=== PATIENT | male | born 1935 | race Caucasian/White ===

== ENCOUNTER 2018-01-17 14:00 | Outpatient (RCR) | payer MEDICARE, OTHER, SELFPAY ==
[2018-01-10 13:03] VITALS: BP 164/69; PULSE 68; RESP 16; TEMP 36.3; BMI 23.6
--- NOTE | 2018-01-10 14:45 | RAD_ITS ---
STUDY: X-RAY RIGHT FOOT, SECOND TOE REASON FOR EXAM: Male, 82 years old. Ulcer on second toe. TECHNIQUE: 3 view(s) of the toe were obtained. COMPARISON: None. FINDINGS: There is demineralization of the metatarsus and phalanges. There is moderately severe arthrosis of the metatarsophalangeal (M.T.P.) joint. Unremarkable interphalangeal joints. . There is no demonstrated fracture/bony destruction. The soft tissue structures are unremarkable. There are vascular calcifications. RAD/Toe(s) Min 2 Views IMPRESSION: 1. 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 2. Osteopenia. No demonstrated fracture/bony destruction. Electronically Signed: Kendal Seay MD at 8:55 EDT Tel , Service support ,
--- NOTE | 2018-01-10 16:11 | PCM.WC.HP ---
(1) HTN (hypertension) Status: Chronic Current Visit: Yes Qualifiers: Hypertension type: unspecified Qualified Code(s): I10 - Essential (primary) hypertension Code(s): I10 - Essential (primary) hypertension (2) Osteoarthritis Status: Acute Current Visit: Yes Qualifiers: Osteoarthritis location: multiple joints Osteoarthritis type: primary Qualified Code(s): M15.0 - Primary generalized (osteo)arthritis Code(s): M19.90 - Unspecified osteoarthritis, unspecified site (3) Callus of foot Status: Chronic Current Visit: Yes Code(s): L84 - Corns and callosities (4) Pressure ulcer of toe, stage 1 Status: Chronic Current Visit: Yes Qualifiers: Laterality: right Qualified Code(s): L89.891 - Pressure ulcer of other site, stage 1 Code(s): L89.891 - Pressure ulcer of other site, stage 1 History of Present Illness Date of Service: 01/10/18 Chief Complaint: nonhealing wound right toes History of Wound: Branden presents to the wound healing center for evaluation and treatment of a nonhealing wound of his right great and second toes. He has had this wound off and on for 6-7 months. It is in between his great and second toes and is painful. He denies any drainage or bleeding. He has been soaking his feet in Epsom salt and placing neosporin on the wound. He has also tried a toe spacer to prevent his toes from rubbing together as well. He has tried different shoes and has cut the toes out of one of his pairs of tennis shoes to see if this would help avoid pressure to the area as well. None of these have kept the wound/ulcers from recurring. He has seen his PCP regarding this problem but he has not seen a ramp jockey. He has no hx. of DM. He denies any edema or numbness or tingling. He has not had any treatment with antibiotics. Past Medical History Past Medical History: Chronic Problems HTN (hypertension) (Chronic) Callus of foot (Chronic) Pressure ulcer of toe, stage 1 (Chronic) Allergies/Adverse Reactions: Allergies No Known Allergies Allergy (Verified 01/10/18 13:26) Home Medications: Ambulatory Orders Medication Instructions Recorded Diclofenac [Voltaren] 75 mg PO DAILY 01/10/18 Lisinopril/Hydrochlorothiazide 1 tablet PO DAILY 01/10/18 [Zestoretic 10/12.5 Tablet] Loratadine 10 mg PO DAILY 01/10/18 Niacin 50 mg PO DAILY 01/10/18 Ranitidine [Zantac] 150 mg PO DAILY 01/10/18 traMADol [Ultram (G)] 50 mg PO Q4H PRN PRN 01/10/18 - Family History Maternal No pertinent history Paternal No pertinent history Lives: Spouse/ Significant Other Smoking Status: Never smoker Tobacco Use: Non-smoker Alcohol: None Drugs: None Review of Systems Constitutional: Denies: Chills, Fever, Weight Change Eyes: Denies: Pain, Vision Change HEENT: Denies: Difficulty Hearing, Difficulty Swallowing, Sinus Congestion Cardiovascular: Denies: Chest Pain, Palpitations Respiratory: Denies: Cough, Shortness of Breath Gastrointestinal: Denies: Diarrhea, Nausea, Vomiting Genitourinary: Denies: Dysuria, Hematuria Musculoskeletal: Reports: Joint Pain, Joint stiffness Skin: Reports: Wounds Hematologic/ Lymphatic: Denies: Easy Bruising, Easy Bleeding - Physical Exam Vital Signs Temp Pulse Resp BP 97.3 F L 68 16 164/69 H 01/10/18 13:03 01/10/18 13:03 01/10/18 13:03 01/10/18 13:03 General: Alert, Oriented x3, Cooperative, No apparent distress HEENT: Atraumatic, Normocephalic Oral: Moist Mucosa Neck: Supple, No JVD Lungs: Clear to auscultation Cardiovascular: Regular rate, Regular Rhythm Abdomen: Soft, Non Tender Extremities: No edema Skin: Ulcer/ Wound, - - callus Wound Measurements and Assessment WC - Nurse 1 - General Ulcer Measurement Start: 01/10/18 13:02 Freq: Status: Active Protocol: Activity Type Activity Date Activity User E-Sign Co-Sign Detail Recorded Client Recorded Date Recorded By Document 01/10/18 13:03 [id number] 01/10/18 13:24 01/10/18 13:03 Wound Center Nurse 1 [Ulcer Assessment] RIGHT SECOND TOE -Combined with other wound No -Current Size (cm) - Length 0.2 -Current Size (cm) - Width 0.3 -Current Size (cm) - Depth 0.1 -Total Square Cm 0.06 -Date of Last Picture (Recall this 01/10/18 field) -Photo Taken Yes -Epithelialization None Present -Tunneling No -Undermining/Tunneling No -Circular Undermining No -Exudate Amt None Present (0 %) -Wound Margin Distinct, Outline Attached -Granulation Amt None Present (0 %) -Granulation Quality N/A -Slough/Fibrin Yes -Necrosis Amt None Present (0 %) -Necrotic Tissue Type Adherent Slough -Structure Exposed None/Limited to Skin Breakdown -Texture (Cecily-wound Skin Appearance) Assessed Callus -Moisture (Cecily-wound Skin Appearance No Abnormality ) Assessed -Color (Cecily-wound Skin Appearance) Assessed Erythema -Temperature (Cecily-wound Skin No Abnormality Appearance) (Pt Warm) -Tenderness on Palpation (Cecily-wound Yes Skin Appearance) -Ulcer Cleansing Rinsed/ Irrigated with Saline -Foul Odor after Cleansing No -Anesthetic Used 4% Lidocaine Solution WC - Nurse 2 - General Ulcer CM Notes Start: 01/10/18 13:02 Freq: Status: Active Protocol: Activity Type Activity Date Activity User E-Sign Co-Sign Detail Recorded Client Recorded Date Recorded By Document 01/10/18 14:01 [email or web address] [id number] 01/10/18 14:13 01/10/18 14:01 Wound Center Nurse 2 [Procedure/Treatment] -Time 14:01 -Correct Patient Yes -Correct Side, Site, Position Yes -Correct Procedure Yes -Procedure Performed Yes -Type of Procedure Debridement -Clinical Debridement Selective -Post Debridement Size (cm) - Length 0.2 -Post Debridement Size (cm) - Width 0.3 -Post Debridement Size (cm) - Depth 0.1 -Total Square Cm 0.06 -Wound/Ulcer Outcome Not Healed -Ulcer Cleansing Rinsed/ Irrigated with Saline -Foul Odor after Cleansing No -Bleeding Controlled with NA -Treatment Response Procedure Tolerated Well [See Physician Procedure note for Specifics] Pain Scale: 0-10 Numeric [Pain] -Is Patient Pain Free? Yes Neurological: Cranial nerves II-XII grossly intact Psych/Mental Status: Normal Affect, Appropriate Debridement Note Post-Debridement Measurements/Treatment - Nurse 2 - General Ulcer CM Notes Start: 01/10/18 13:02 Freq: Status: Active Protocol: Activity Type Activity Date Activity User E-Sign Co-Sign Detail Recorded Client Recorded Date Recorded By Document 01/10/18 14:01 [id number] 01/10/18 14:13 JS 01/10/18 14:01 Wound Center Nurse 2 RIGHT SECOND TOE -Time 14:01 -Correct Patient Yes -Correct Side, Site, Position Yes -Correct Procedure Yes -Procedure Performed Yes -Type of Procedure Debridement -Clinical Debridement Selective -Post Debridement Size (cm) - Length 0.2 -Post Debridement Size (cm) - Width 0.3 -Post Debridement Size (cm) - Depth 0.1 -Total Square Cm 0.06 -Wound/Ulcer Outcome Not Healed -Ulcer Cleansing Rinsed/ Irrigated with Saline -Foul Odor after Cleansing No -Bleeding Controlled with NA -Treatment Response Procedure Tolerated Well Pain Scale: 0-10 Numeric Is Patient Pain Free? Yes Wound debrided: right second toe Laterality: Right Wound Grade/Stage: Stage 1 Type of Debridement: Selective debridement Anesthesia Used: 4% Lidocaine Solution Depth: Down to and including healthy tissue Percentage of wound debrided: 100 Instrument Used: 3mm curette Tissue Removed: callus Severity: Limited To Skin Breakdown Amount of bleeding with debridement: None Patient tolerated procedure well Assessment/Plan Active Problems HTN (hypertension) (Chronic) Osteoarthritis (Acute) Callus of foot (Chronic) Pressure ulcer of toe, stage 1 (Chronic) Assessment: Stage 1 pressure ulcer right second toe. Callus of right great toe. cellulitis right second toe Plan: Will try treatment with keflex due to his pain and mild erythema although I am only minimally concerned for infection. Will also check xray to r/o osteomyelitis. Will have him use gauze or toe spacer to prevent pressure. Advised to seek consult with podiatry for possibly offloading shoe or orthotic to prevent recurrence. Advised against continued use of neosporin. Will follow up in 1 week to recheck wound and review results.
--- NOTE | 2018-01-10 16:21 | HP.PCM_ITS ---
(1) HTN (hypertension) Status: Chronic Current Visit: Yes Qualifiers: Hypertension type: unspecified Qualified Code(s): I10 - Essential (primary ) hypertension Code(s): I10 - Essential (primary) hypertension (2) Osteoarthritis Status: Acute Current Visit: Yes Qualifiers: Osteoarthritis location: multiple joints Osteoarthritis type: primary Qualified Code(s): M15.0 - Primary generalized (osteo)arthritis Code(s): M19.90 - Unspecified osteoarthritis, unspecified site (3) Callus of foot Status: Chronic Current Visit: Yes Code(s): L84 - Corns and callosities (4) Pressure ulcer of toe, stage 1 Status: Chronic Current Visit: Yes Qualifiers: Laterality: right Qualified Code(s): L89.891 - Pressure ulcer of other site , stage 1 Code(s): L89.891 - Pressure ulcer of other site, stage 1 History of Present Illness Date of Service: 01/10/18 Chief Complaint: nonhealing wound right toes History of Wound: Branden presents to the wound healing center for evaluation and treatment of a nonhealing wound of his right great and second toes. He has had this wound off and on for 6-7 months. It is in between his great and second toes and is painful. He denies any drainage or bleeding. He has been soaking his feet in Epsom salt and placing neosporin on the wound. He has also tried a toe spacer to prevent his toes from rubbing together as well. He has tried different shoes and has cut the toes out of one of his pairs of tennis shoes to see if this would help avoid pressure to the area as well. None of these have kept the wound/ulcers from recurring. He has seen his PCP regarding this problem but he has not seen a research and evaluation manager. He has no hx. of DM. He denies any edema or numbness or tingling. He has not had any treatment with antibiotics. Past Medical History Past Medical History: Chronic Problems HTN (hypertension) (Chronic) Callus of foot (Chronic) Pressure ulcer of toe, stage 1 (Chronic) Allergies/Adverse Reactions: Allergies No Known Allergies Allergy (Verified 01/10/18 13:26) Home Medications: Ambulatory Orders Medication Instructions Recorded Diclofenac [Voltaren] 75 mg PO DAILY 01/10/18 Lisinopril/Hydrochlorothiazide 1 tablet PO DAILY 01/10/18 [Zestoretic 10/12.5 Tablet] Loratadine 10 mg PO DAILY 01/10/18 Niacin 50 mg PO DAILY 01/10/18 Ranitidine [Zantac] 150 mg PO DAILY 01/10/18 traMADol [Ultram (G)] 50 mg PO Q4H PRN PRN 01/10/18 - Family History Maternal No pertinent history Paternal No pertinent history Lives: Spouse/ Significant Other Smoking Status: Never smoker Tobacco Use: Non-smoker Alcohol: None Drugs: None Review of Systems Constitutional: Denies: Chills, Fever, Weight Change Eyes: Denies: Pain, Vision Change HEENT: Denies: Difficulty Hearing, Difficulty Swallowing, Sinus Congestion Cardiovascular: Denies: Chest Pain, Palpitations Respiratory: Denies: Cough, Shortness of Breath Gastrointestinal: Denies: Diarrhea, Nausea, Vomiting Genitourinary: Denies: Dysuria, Hematuria Musculoskeletal: Reports: Joint Pain, Joint stiffness Skin: Reports: Wounds Hematologic/ Lymphatic: Denies: Easy Bruising, Easy Bleeding - Physical Exam Vital Signs Temp Pulse Resp BP 97.3 F L 68 16 164/69 H 01/10/18 13:03 01/10/18 13:03 01/10/18 13:03 01/10/18 13:03 General: Alert, Oriented x3, Cooperative, No apparent distress HEENT: Atraumatic, Normocephalic Oral: Moist Mucosa Neck: Supple, No JVD Lungs: Clear to auscultation Cardiovascular: Regular rate, Regular Rhythm Abdomen: Soft, Non Tender Extremities: No edema Skin: Ulcer/ Wound, - - callus Wound Measurements and Assessment WC - Nurse 1 - General Ulcer Measurement Start: 01/10/18 13:02 Freq: Status: Active Protocol: Activity Type Activity Date Activity User E-Sign Co-Sign Detail Recorded Client Recorded Date Recorded By Document 01/10/18 13:03 [id number] 01/10/18 13:24 01/10/18 13:03 Wound Center Nurse 1 [Ulcer Assessment] RIGHT SECOND TOE -Combined with other wound No -Current Size (cm) - Length 0.2 -Current Size (cm) - Width 0.3 -Current Size (cm) - Depth 0.1 -Total Square Cm 0.06 -Date of Last Picture (Recall this 01/10/18 field) -Photo Taken Yes -Epithelialization None Present -Tunneling No -Undermining/Tunneling No -Circular Undermining No -Exudate Amt None Present (0 %) -Wound Margin Distinct, Outline Attached -Granulation Amt None Present (0 %) -Granulation Quality N/A -Slough/Fibrin Yes -Necrosis Amt None Present (0 %) -Necrotic Tissue Type Adherent Slough -Structure Exposed None/Limited to Skin Breakdown -Texture (Cecily-wound Skin Appearance) Assessed Callus -Moisture (Cecily-wound Skin Appearance No Abnormality ) Assessed -Color (Cecily-wound Skin Appearance) Assessed Erythema -Temperature (Cecily-wound Skin No Abnormality Appearance) (Pt Warm) -Tenderness on Palpation (Cecily-wound Yes Skin Appearance) -Ulcer Cleansing Rinsed/ Irrigated with Saline -Foul Odor after Cleansing No -Anesthetic Used 4% Lidocaine Solution WC - Nurse 2 - General Ulcer CM Notes Start: 01/10/18 13:02 Freq: Status: Active Protocol: Activity Type Activity Date Activity User E-Sign Co-Sign Detail Recorded Client Recorded Date Recorded By Document 01/10/18 14:01 [email or web address] [id number] 01/10/18 14:13 01/10/18 14:01 Wound Center Nurse 2 [Procedure/Treatment] -Time 14:01 -Correct Patient Yes -Correct Side, Site, Position Yes -Correct Procedure Yes -Procedure Performed Yes -Type of Procedure Debridement -Clinical Debridement Selective -Post Debridement Size (cm) - Length 0.2 -Post Debridement Size (cm) - Width 0.3 -Post Debridement Size (cm) - Depth 0.1 -Total Square Cm 0.06 -Wound/Ulcer Outcome Not Healed -Ulcer Cleansing Rinsed/ Irrigated with Saline -Foul Odor after Cleansing No -Bleeding Controlled with NA -Treatment Response Procedure Tolerated Well [See Physician Procedure note for Specifics] Pain Scale: 0-10 Numeric [Pain] -Is Patient Pain Free? Yes Neurological: Cranial nerves II-XII grossly intact Psych/Mental Status: Normal Affect, Appropriate Debridement Note Post-Debridement Measurements/Treatment - Nurse 2 - General Ulcer CM Notes Start: 01/10/18 13:02 Freq: Status: Active Protocol: Activity Type Activity Date Activity User E-Sign Co-Sign Detail Recorded Client Recorded Date Recorded By Document 01/10/18 14:01 [id number] 01/10/18 14:13 JS 01/10/18 14:01 Wound Center Nurse 2 RIGHT SECOND TOE -Time 14:01 -Correct Patient Yes -Correct Side, Site, Position Yes -Correct Procedure Yes -Procedure Performed Yes -Type of Procedure Debridement -Clinical Debridement Selective -Post Debridement Size (cm) - Length 0.2 -Post Debridement Size (cm) - Width 0.3 -Post Debridement Size (cm) - Depth 0.1 -Total Square Cm 0.06 -Wound/Ulcer Outcome Not Healed -Ulcer Cleansing Rinsed/ Irrigated with Saline -Foul Odor after Cleansing No -Bleeding Controlled with NA -Treatment Response Procedure Tolerated Well Pain Scale: 0-10 Numeric Is Patient Pain Free? Yes Wound debrided: right second toe Laterality: Right Wound Grade/Stage: Stage 1 Type of Debridement: Selective debridement Anesthesia Used: 4% Lidocaine Solution Depth: Down to and including healthy tissue Percentage of wound debrided: 100 Instrument Used: 3mm curette Tissue Removed: callus Severity: Limited To Skin Breakdown Amount of bleeding with debridement: None Patient tolerated procedure well Assessment/Plan Active Problems HTN (hypertension) (Chronic) Osteoarthritis (Acute) Callus of foot (Chronic) Pressure ulcer of toe, stage 1 (Chronic) Assessment: Stage 1 pressure ulcer right second toe. Callus of right great toe. cellulitis right second toe Plan: Will try treatment with keflex due to his pain and mild erythema although I am only minimally concerned for infection. Will also check xray to r/o osteomyelitis. Will have him use gauze or toe spacer to prevent pressure. Advised to seek consult with podiatry for possibly offloading shoe or orthotic to prevent recurrence. Advised against continued use of neosporin. Will follow up in 1 week to recheck wound and review results.
[2018-01-17 14:15] VITALS: BP 151/80; PULSE 83; RESP 18; TEMP 36.4; BMI 23.6
--- NOTE | 2018-01-17 19:53 | PCM.WC.PN ---
(1) HTN (hypertension) Status: Chronic Current Visit: Yes Qualifiers: Hypertension type: unspecified Qualified Code(s): I10 - Essential (primary) hypertension Code(s): I10 - Essential (primary) hypertension (2) Osteoarthritis Status: Acute Current Visit: Yes Qualifiers: Osteoarthritis location: multiple joints Osteoarthritis type: primary Qualified Code(s): M15.0 - Primary generalized (osteo)arthritis Code(s): M19.90 - Unspecified osteoarthritis, unspecified site (3) Callus of foot Status: Chronic Current Visit: Yes Code(s): L84 - Corns and callosities (4) Pressure ulcer of toe, stage 1 Status: Chronic Current Visit: Yes Qualifiers: Laterality: right Qualified Code(s): L89.891 - Pressure ulcer of other site, stage 1 Code(s): L89.891 - Pressure ulcer of other site, stage 1 Type of Wound Date of Service: 01/17/18 Chief Complaint: nonhealing wound right toes History of Wound: Branden presents to the wound healing center for evaluation and treatment of a nonhealing wound of his right great and second toes. He has had this wound off and on for 6-7 months. It is in between his great and second toes and is painful. He denies any drainage or bleeding. He has been soaking his feet in Epsom salt and placing neosporin on the wound. He has also tried a toe spacer to prevent his toes from rubbing together as well. He has tried different shoes and has cut the toes out of one of his pairs of tennis shoes to see if this would help avoid pressure to the area as well. None of these have kept the wound/ulcers from recurring. He has seen his PCP regarding this problem but he has not seen a histology aide. He has no hx. of DM. He denies any edema or numbness or tingling. He has not had any treatment with antibiotics. Progress of Wound: Branden's wound is healed. He has been doing well with toe spacer. xray was negative for osteomyelitis. He is tolerating keflex. He has not scheduled appointment with podiatry at this time. - Physical Exam Vital Signs Temp Pulse Resp BP 97.6 F L 83 18 151/80 H 01/17/18 14:15 01/17/18 14:15 01/17/18 14:15 01/17/18 14:15 General: Alert, Oriented x3, Cooperative, No apparent distress HEENT: Atraumatic, Normocephalic Oral: Moist Mucosa Skin: Ulcer/ Wound Wound Measurements and Assessment - Nurse 1 - General Ulcer Measurement Start: 01/10/18 13:02 Freq: Status: Active Protocol: Activity Type Activity Date Activity User E-Sign Co-Sign Detail Recorded Client Recorded Date Recorded By Document 01/17/18 14:15 [id number] 01/17/18 14:19 DL 01/17/18 14:15 Wound Center Nurse 1 [Ulcer Assessment] RIGHT SECOND TOE -Current Size (cm) - Length 0 -Current Size (cm) - Width 0 -Current Size (cm) - Depth 0 -Total Square Cm 0 -Photo Taken Yes -Exudate Amt None Present (0 %) -Wound Margin Flat & Intact -Granulation Amt Large (67-100%) -Granulation Quality [place] -Necrosis Amt None Present (0 %) -Texture (Cecily-wound Skin Appearance) No Abnormality -Moisture (Cecily-wound Skin Appearance No Abnormality ) -Color (Cecily-wound Skin Appearance) No Abnormality -Temperature (Cecily-wound Skin No Abnormality Appearance) (Pt Warm) -Ulcer Cleansing Rinsed/ Irrigated with Saline -Foul Odor after Cleansing No -Anesthetic Used 4% Lidocaine Solution - Nurse 2 - General Ulcer CM Notes Start: 01/10/18 13:02 Freq: Status: Active Protocol: Activity Type Activity Date Activity User E-Sign Co-Sign Detail Recorded Client Recorded Date Recorded By Document 01/17/18 15:15 [id number] 01/17/18 15:22 01/17/18 15:15 Wound Center Nurse 2 [Procedure/Treatment] -Time 15:16 -Correct Patient Yes -Correct Side, Site, Position Yes -Correct Procedure Yes -Procedure Performed Yes -Post Debridement Size (cm) - Length 0 -Post Debridement Size (cm) - Width 0 -Post Debridement Size (cm) - Depth 0 -Total Square Cm 0 -Wound/Ulcer Outcome Healed- Epithelialized -Ulcer Cleansing Rinsed/ Irrigated with Saline -Foul Odor after Cleansing No -Bioengineered Tissue No -Bleeding Controlled with NA -Treatment Response Procedure Tolerated Well [See Physician Procedure note for Specifics] Pain Scale: 0-10 Numeric [Pain] -Is Patient Pain Free? Yes Psych/Mental Status: Normal Affect, Appropriate Debridement Note Post-Debridement Measurements/Treatment WC - Nurse 2 - General Ulcer CM Notes Start: 01/10/18 13:02 Freq: Status: Active Protocol: Activity Type Activity Date Activity User E-Sign Co-Sign Detail Recorded Client Recorded Date Recorded By Document 01/10/18 14:01 [id number] 01/10/18 14:13 Document 01/17/18 15:15 [id number] 01/17/18 15:22 01/10/18 01/17/18 14:01 15:15 Wound Center Nurse 2 RIGHT SECOND TOE -Time 14:01 15:16 -Correct Patient Yes Yes -Correct Side, Site, Position Yes Yes -Correct Procedure Yes Yes -Procedure Performed Yes Yes -Type of Procedure Debridement -Clinical Debridement Selective -Post Debridement Size (cm) - Length 0.2 0 -Post Debridement Size (cm) - Width 0.3 0 -Post Debridement Size (cm) - Depth 0.1 0 -Total Square Cm 0.06 0 -Wound/Ulcer Outcome Not Healed Healed- Epithelialized -Ulcer Cleansing Rinsed/ Rinsed/ Irrigated with Irrigated with Saline Saline -Foul Odor after Cleansing No No -Bioengineered Tissue No -Bleeding Controlled with NA NA -Treatment Response Procedure Procedure Tolerated Well Tolerated Well Pain Scale: 0-10 Numeric Is Patient Pain Free? Yes Yes Wound debrided: right second toe Laterality: Right No debridement was completed today - due to wound being healed Assessment/Plan Clinical Impression(s) from Imaging Studies Toe X-Ray 01/10/18 14:45 IMPRESSION: 1. 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 2. Osteopenia. No demonstrated fracture/bony destruction. Electronically Signed: Kendal Seay MD at 8:55 EDT Tel , Service support , Active Problems HTN (hypertension) (Chronic) Osteoarthritis (Acute) Callus of foot (Chronic) Pressure ulcer of toe, stage 1 (Chronic) Assessment: Stage 1 pressure ulcer right second toe. Callus of right great toe. cellulitis right second toe Plan: Lapwai's wound is healed. No sign of osteomyelitis on xray. Will have him use gauze or toe spacer to prevent pressure. Advised to seek consult with podiatry for possibly offloading shoe or orthotic to prevent recurrence. Advised against continued use of neosporin. Will follow up as needed.
--- NOTE | 2018-01-17 19:56 | PN.PCM_ITS ---
(1) HTN (hypertension) Status: Chronic Current Visit: Yes Qualifiers: Hypertension type: unspecified Qualified Code(s): I10 - Essential (primary ) hypertension Code(s): I10 - Essential (primary) hypertension (2) Osteoarthritis Status: Acute Current Visit: Yes Qualifiers: Osteoarthritis location: multiple joints Osteoarthritis type: primary Qualified Code(s): M15.0 - Primary generalized (osteo)arthritis Code(s): M19.90 - Unspecified osteoarthritis, unspecified site (3) Callus of foot Status: Chronic Current Visit: Yes Code(s): L84 - Corns and callosities (4) Pressure ulcer of toe, stage 1 Status: Chronic Current Visit: Yes Qualifiers: Laterality: right Qualified Code(s): L89.891 - Pressure ulcer of other site , stage 1 Code(s): L89.891 - Pressure ulcer of other site, stage 1 Type of Wound Date of Service: 01/17/18 Chief Complaint: nonhealing wound right toes History of Wound: Branden presents to the wound healing center for evaluation and treatment of a nonhealing wound of his right great and second toes. He has had this wound off and on for 6-7 months. It is in between his great and second toes and is painful. He denies any drainage or bleeding. He has been soaking his feet in Epsom salt and placing neosporin on the wound. He has also tried a toe spacer to prevent his toes from rubbing together as well. He has tried different shoes and has cut the toes out of one of his pairs of tennis shoes to see if this would help avoid pressure to the area as well. None of these have kept the wound/ulcers from recurring. He has seen his PCP regarding this problem but he has not seen a chopper feeder. He has no hx. of DM. He denies any edema or numbness or tingling. He has not had any treatment with antibiotics. Progress of Wound: Branden's wound is healed. He has been doing well with toe spacer. xray was negative for osteomyelitis. He is tolerating keflex. He has not scheduled appointment with podiatry at this time. - Physical Exam Vital Signs Temp Pulse Resp BP 97.6 F L 83 18 151/80 H 01/17/18 14:15 01/17/18 14:15 01/17/18 14:15 01/17/18 14:15 General: Alert, Oriented x3, Cooperative, No apparent distress HEENT: Atraumatic, Normocephalic Oral: Moist Mucosa Skin: Ulcer/ Wound Wound Measurements and Assessment - Nurse 1 - General Ulcer Measurement Start: 01/10/18 13:02 Freq: Status: Active Protocol: Activity Type Activity Date Activity User E-Sign Co-Sign Detail Recorded Client Recorded Date Recorded By Document 01/17/18 14:15 [id number] 01/17/18 14:19 DL 01/17/18 14:15 Wound Center Nurse 1 [Ulcer Assessment] RIGHT SECOND TOE -Current Size (cm) - Length 0 -Current Size (cm) - Width 0 -Current Size (cm) - Depth 0 -Total Square Cm 0 -Photo Taken Yes -Exudate Amt None Present (0 %) -Wound Margin Flat & Intact -Granulation Amt Large (67-100%) -Granulation Quality Whiteface -Necrosis Amt None Present (0 %) -Texture (Cecily-wound Skin Appearance) No Abnormality -Moisture (Cecily-wound Skin Appearance No Abnormality ) -Color (Cecily-wound Skin Appearance) No Abnormality -Temperature (Cecily-wound Skin No Abnormality Appearance) (Pt Warm) -Ulcer Cleansing Rinsed/ Irrigated with Saline -Foul Odor after Cleansing No -Anesthetic Used 4% Lidocaine Solution - Nurse 2 - General Ulcer CM Notes Start: 01/10/18 13:02 Freq: Status: Active Protocol: Activity Type Activity Date Activity User E-Sign Co-Sign Detail Recorded Client Recorded Date Recorded By Document 01/17/18 15:15 [id number] 01/17/18 15:22 01/17/18 15:15 Wound Center Nurse 2 [Procedure/Treatment] -Time 15:16 -Correct Patient Yes -Correct Side, Site, Position Yes -Correct Procedure Yes -Procedure Performed Yes -Post Debridement Size (cm) - Length 0 -Post Debridement Size (cm) - Width 0 -Post Debridement Size (cm) - Depth 0 -Total Square Cm 0 -Wound/Ulcer Outcome Healed- Epithelialized -Ulcer Cleansing Rinsed/ Irrigated with Saline -Foul Odor after Cleansing No -Bioengineered Tissue No -Bleeding Controlled with NA -Treatment Response Procedure Tolerated Well [See Physician Procedure note for Specifics] Pain Scale: 0-10 Numeric [Pain] -Is Patient Pain Free? Yes Psych/Mental Status: Normal Affect, Appropriate Debridement Note Post-Debridement Measurements/Treatment WC - Nurse 2 - General Ulcer CM Notes Start: 01/10/18 13:02 Freq: Status: Active Protocol: Activity Type Activity Date Activity User E-Sign Co-Sign Detail Recorded Client Recorded Date Recorded By Document 01/10/18 14:01 [id number] 01/10/18 14:13 Document 01/17/18 15:15 [id number] 01/17/18 15:22 01/10/18 01/17/18 14:01 15:15 Wound Center Nurse 2 RIGHT SECOND TOE -Time 14:01 15:16 -Correct Patient Yes Yes -Correct Side, Site, Position Yes Yes -Correct Procedure Yes Yes -Procedure Performed Yes Yes -Type of Procedure Debridement -Clinical Debridement Selective -Post Debridement Size (cm) - Length 0.2 0 -Post Debridement Size (cm) - Width 0.3 0 -Post Debridement Size (cm) - Depth 0.1 0 -Total Square Cm 0.06 0 -Wound/Ulcer Outcome Not Healed Healed- Epithelialized -Ulcer Cleansing Rinsed/ Rinsed/ Irrigated with Irrigated with Saline Saline -Foul Odor after Cleansing No No -Bioengineered Tissue No -Bleeding Controlled with NA NA -Treatment Response Procedure Procedure Tolerated Well Tolerated Well Pain Scale: 0-10 Numeric Is Patient Pain Free? Yes Yes Wound debrided: right second toe Laterality: Right No debridement was completed today - due to wound being healed Assessment/Plan Clinical Impression(s) from Imaging Studies Toe X-Ray 01/10/18 14:45 IMPRESSION: 1. 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 2. Osteopenia. No demonstrated fracture/bony destruction. Electronically Signed: Kendal Seay MD at 8:55 EDT Tel , Service support , Active Problems HTN (hypertension) (Chronic) Osteoarthritis (Acute) Callus of foot (Chronic) Pressure ulcer of toe, stage 1 (Chronic) Assessment: Stage 1 pressure ulcer right second toe. Callus of right great toe. cellulitis right second toe Plan: Branden's wound is healed. No sign of osteomyelitis on xray. Will have him use gauze or toe spacer to prevent pressure. Advised to seek consult with podiatry for possibly offloading shoe or orthotic to prevent recurrence. Advised against continued use of neosporin. Will follow up as needed.
== END 2018-01-18 23:59 ==
LOC: WC 14:00
PROVIDERS: Family Provider Family Medicine; PCP Family Medicine; Visit Provider Family Medicine
DX: L89.891 Pressure ulcer of other site, stage 1 (principal); M19.90 Unspecified osteoarthritis, unspecified site; I10 Essential (primary) hypertension; L84 Corns and callosities; L03.031 Cellulitis of right toe
CPT/HCPCS: 73660; 97597; 99212; G0463

== ENCOUNTER → 2021-05-22 13:13 | Outpatient (CLI) | payer MEDICARE, OTHER, SELFPAY ==
--- NOTE | 2021-05-22 13:30 | SP.MBSS_ITS ---
Modified Barium Swallow - Patient Information Study Date: 05/22/21 Study Time: 13:30 Direct Billable Minutes: 125 Total Minutes procedure & reportin Diagnosis: pharyngoesophageal dysphagia (R13.14) Referring Physician: Adrián Galeana Reason for Referral: accompanied patient to this study and served as the primary informant d/t known hx of dementia. reports difficulty swallowing various textures (meat, bread, mashed potatoes, even water at times) characterized by food/liquid not going down w/ bolus trapping reported in the sternal region. Reduced PO intake w/ avoidance of many food items. Slow rate of intake w/ extremely small bites and frequent liquid wash needed. Frequent coughing/gagging w/ emesis/expectoration of bolus. Denies associated weight loss or recent/recurrent pneumonias. Medical History: Dementia, HTN, OA Dentition: Upper Dentures, Lower Dentures - has lower dentures but does not consistently use - lower dentures not present for MBSS Mental Status: Impaired - hx dementia w/ serving as primary informant - able to follow simple commands for participation in MBS w/ some repetition needed Respiratory Status: Oxygenating on Room Air - Penetration-Aspiration Scale Penetration-Aspiration Scale: OBJECTIVE ASSESSMENT OF SWALLOW FUNCTION (QUANTITATIVE ? PER TRIAL): PENETRATION / ASPIRATION SCALE (LANDERS): 1 = does not enter airway 2 = enters airway/above vocal folds/ejected 3 = enters airway/above vocal folds/not ejected 4 = enters airway/contacts vocal folds/ejected 5 = enters airway/contacts vocal folds/not ejected 6 = enters airway/below vocal folds/ejected 7 = enters airway/below vocal folds/not ejected despite effort 8 = enters airway/below vocal folds/no effort - Penetration-Aspiration Scale Score Thin Liquid via teaspoon Result: 1= does not enter airway Thin Liquid via small single sip from cup Result: 1= does not enter airway Thin Liquid via sequential sips from cup Result: 1= does not enter airway Thin Liquid via single sip from straw Result: 1= does not enter airway Pudding Result: 1= does not enter airway Pudding Trial 2 Result: 1= does not enter airway Cookie Result: 1= does not enter airway Thin Liquid via small single sip from cup Trial 2 Result: 1= does not enter airway Thin Liquid via small single sip from cup Trial 3 Result: 2= enter airway/above vocal folds/ejected - Oral Phase Labial Seal: Interlabial escape, no progression to anterior lip Tongue Control During Bolus Hold: Posterior escape of less than half of bolus Bolus Preparation/Mastication: Disorganized chewing/mashing with solid pieces of bolus unchewed Bolus Transport/Lingual Motion: Repetitive/disorganized tongue motion Oral Residue: Residue collection on oral structures - Pharyngeal Phase Initiation of Pharyngeal Swallow: Bolus head at posterior laryngeal surgace of epiglottis Soft Palate Elevation: No bolus between soft palate and pharyngeal wall Laryngeal Elevation: Comp. Superior move thyroid cart w/comp. apprx arytenoid cart-epig pet Anterior Hyoid Excursion: Complete anterior movement Epiglottic Movement: Complete inversion Laryngeal Vestibule Closure at Height of Swallow: Complete; no air/contrast in laryngeal vestibule Pharyngeal Stripping Wave: Present - diminished Pharyngoesophageal Segment Opening: Complete distension and complete duration; no obstruction of flow Tongue Base Retraction: Trace column of contrast between tongue base & post. pharyngeal wall Pharyngeal Residue: Trace residue within or on pharyngeal structures - Esophageal Phase Esophageal Clearance: Minimal to no esophageal clearance - Diagnosis/Impression Diagnosis: mild oropharyngeal dysphagia w/ esophageal phase dysphagia evident Impression: Swallow function is characterized by: * significant mastication inefficiency, exacerbated by lack of lower dentition * suboptimal lingual control w/ disorganized oral bolus transportation of solids * pharyngeal swallow onset w/ bolus at the posterior laryngeal surface of the epiglottis * transient laryngeal vestibule penetration 1x w/ thin liquid; completely ejected * reduced tongue based retraction and diminished posterior pharyngeal stripping wave action resulting in trace-min pharyngeal residue lining the tongue base, valleculae, aryepiglottic folds and pyriforms * mild cricopharyngeal hypertrophy noted which did not impact pharyngeal to esophageal bolus flow * severe esophageal phase dysphagia w/ esophageal bolus retention w/ tertiary contractions and minimal clearance * no retrograde flow through the pharyngoesophageal segment in to the pharynx appreciated during the study, although highly suspected d/t throat clearing w/ sensation of food/liquid coming back up reported by patient following MBS conclusion Diet Recommended: * Minced & Moist Texture (IDDSI: 5) * Thin Liquid (IDDSI: 0) Compensatory Strategies Recommended: * Small bites * Chew thoroughly, wear upper and lower dentures for PO intake * Small sips * Alternate bites of solids w/ sips of liquids * Slow rate of intake to allow time for esophageal clearance * Sit upright w/ hip flexion at 90 degrees during PO intake * Remain seated upright for 30-60 minutes after PO intake (GERD precautions) Recommended Referrals: * Consider assessment of esophageal function w/ referral to gastroenterology for further workup. No further skilled speech-language intervention warranted: * Images were reviewed w/ the patient and following MBSS conclusion. * The demonstrated sufficient comprehension of results and recommendations discussed and verbalized understanding/agreement w/ the above detailed treatment plan. * Patient unlikely to benefit from additional skilled ST intervention d/t preexisting cognitive limitations. - Status Active ST Patient: Active - Contact Information [facility] Speech Therapy:: Moni Marin M.A., CCC-SENIOR DATA INTEGRATION DEVELOPER [address] [address] [phone] [email or web address]
== END ==
PROVIDERS: PCP Family Medicine; Referring Provider Family Medicine; Visit Provider Family Medicine
DX: R13.14 Dysphagia, pharyngoesophageal phase (principal)
CPT/HCPCS: 74230; 92611

== ENCOUNTER 2021-12-27 00:34 | Emergency (ER) | payer MEDICARE, OTHER, SELFPAY ==
[2021-12-27 00:34] VITALS: BP 105/62; PULSE 91; RESP 15; TEMP 37; O2SAT 94; BMI 25.0
[2021-12-27 00:45] VITALS: O2SAT 95
--- NOTE | 2021-12-27 00:58 | CT_ITS ---
STUDY: CT CERVICAL SPINE WITHOUT CONTRAST REASON FOR EXAM: Male, 86 years old. head injury RADIATION DOSAGE (If Supplied By Facility): CTDIvol = ( 16.14 ) mGy, DLP = ( 329.48 ) mGycm TECHNIQUE: High resolution transaxial imaging was performed without contrast material. Sagittal and coronal images were reconstructed. Individualized dose optimization techniques were used for this CT. COMPARISON: None FINDINGS: ALIGNMENT: Nonspecific straightening of the normal cervical lordosis. VERTEBRAL BODIES: No fracture or acute abnormality. DISC SPACES: Multilevel degenerative changes with prominent disc osteophyte complex formation contributing to moderate spinal canal narrowing and mild to moderate neuroforaminal narrowing. POSTERIOR ELEMENTS: Normal. SPINAL CANAL: Normal. PARASPINAL SOFT TISSUES: Normal. LUNG APICES: Visualized portions normal. OTHER: None. CT/Spine Cervical without Contras IMPRESSION: 1. No acute fracture or subluxation. 2. Nonspecific straightening of the normal cervical lordosis. 3. Multilevel degenerative changes. Electronically Signed: Roddy Mcclure MD at 2:32 EDT ,
--- NOTE | 2021-12-27 00:58 | CT_ITS ---
STUDY: CT BRAIN WITHOUT CONTRAST REASON FOR EXAM: Male, 86 years old. head injury RADIATION DOSAGE (If Supplied By Facility): CTDIvol = ( 44.99 ) mGy, DLP = ( 812.98 ) mGycm TECHNIQUE: Transaxial CT imaging of the brain was performed without administration of intravenous contrast material. Individualized dose optimization techniques were used for this CT. COMPARISON: No relevant priors. FINDINGS: BRAIN: Normal rodriguez/white matter differentiation. VENTRICLES: No hydrocephalus. EXTRA-AXIAL SPACES: No hemorrhages, fluid collections, or masses. CALVARIUM/SKULL BASE: Normal. FACE/SINUSES: Visualized portions normal. SOFT TISSUES: Frontal scalp laceration. OTHER: Vascular calcifications.. CONCLUSION: No intracranial hemorrhage or depressed calvarial fracture. Electronically Signed: Roddy Mcclure MD at 2:06 EDT , CT/Brain/Head without Contrast IMPRESSION: undefined
--- NOTE | 2021-12-27 00:58 | RAD_ITS ---
INDICATION: pain EXAMINATION/TECHNIQUE: X-RAY - XR Spine Thoracic 3 Views 4 VIEWS COMPARISON: None. FINDINGS: SOFT TISSUES: No soft tissue swelling or gas. No radiopaque foreign body. BONES/JOINTS: No acute fracture or subluxation.. Normal alignment. Multilevel degenerative changes throughout the visualized spine. RAD/Thoracic Spine 3 Views IMPRESSION: No acute fracture or subluxation. Electronically Signed: Roddy Mcclure MD at 2:23 EDT ,
[2021-12-27] MEDS: Diphth,Pertuss(Acell),Tet Vac 0.5 ML Vial IM (01:04)
[2021-12-27] MEDS: Lidocaine 2% /Epi 1:100 (20ml) 20 ML VIAL INFILT (01:05)
--- NOTE | 2021-12-27 01:25 | RAD_ITS ---
EXAM: XR PELVIS, 1 OR 2 VIEWS CLINICAL INDICATION: fall TECHNIQUE: Frontal view of the pelvis. This report was created using [email or web address] report generation technology. COMPARISON: April 13, 2013, postoperative exam for right hip prosthesis. FINDINGS: BONES/JOINTS: Intact right hip prosthesis components. No hip or pelvic fracture. No destructive or sclerotic lesions. Note that overlapping bowel shadows may however obscure fine detail. Sacroiliac joints are unremarkable. No widening of the pubic symphysis. SOFT TISSUES: Unremarkable. No soft tissue swelling or gas. RAD/Pelvis 1 or 2 Views IMPRESSION: No acute findings in the pelvis. Electronically Signed: Robyn Lambert MD at 2:55 EDT ,
--- NOTE | 2021-12-27 01:25 | EX.ED.DYSGE1 ---
HPI History of Present Illness Chief Complaint: Fall Narrative Narrative: Patient is an 86-year-old male who lives at home with his and has a history of Alzheimer's dementia. Roughly 30 minutes prior to arrival he fell asleep in his chair and then fell forward striking his head on a coffee table. states that he has been at his baseline mental status since the injury and she denies any bleeding disorder or history of blood thinner use. She states that he sustained a cut to his head and she was worried about underlying injury and secondary to these events brings him in for evaluation. The patient cannot offer any further history based on his Alzheimer's dementia status [facility] Medical History Alzheimer disease Home Medications Ranitidine [Zantac] 150 mg PO DAILY 01/10/18 [History Last Taken Unknown] diclofenac sodium 75 mg PO DAILY 01/10/18 [History Last Taken Unknown] lisinopril-hydrochlorothiazide [Zestoretic 10/12.5 Tablet] 1 tab PO DAILY 01/10/18 [History Last Taken Unknown] loratadine 10 mg PO DAILY 01/10/18 [History Last Taken Unknown] niacin 50 mg PO DAILY 01/10/18 [History Last Taken Unknown] tramadol 50 mg PO Q4H PRN PRN 01/10/18 [History Last Taken Unknown] Allergy/AdvReac Type Severity Reaction Status Date / Time No Known Allergies Allergy Verified 01/10/18 13:26 Social History Smoking Status: Never smoker ROS ROS ED Review of Systems ROS Unobtainable: due to mental status EXAM Physical Exam Const Vital Signs: 12/27/21 00:34 12/27/21 00:45 Temperature 98.6 F Temperature Source Temporal Pulse Rate 91 Respiratory Rate 15 Respiratory Effort Normal Non-Labored Respiratory Depth Normal Respiratory Pattern Normal Blood Pressure 105/62 Blood Pressure Mean 76 Pulse Ox 94 95 Oxygen Delivery Method Room Air Room Air Positive well nourished and well developed General Appearance ED: well developed HEENT HEENT Narrative: No signs of depressed or basilar skull fracture. Patient does have a L-shaped subcutaneous layer deep laceration to the parietal portion of his scalp. The wound is 3.5 cm in length. There is no active bleeding or foreign body noted. Patient does have slight bruising to the bridge of his nose but no septal hematoma noted Eyes PERRL and EOMs intact bilaterally Eyes Narrative: No hyphema Neck supple Neck Narrative: No bony deformity or step-off of the cervical spine no midline pain with palpation Chest Wall palpation of chest normal Resp normal respiratory effort and clear to auscultation bilaterally Cardio regular rate and regular rhythm GI normal to inspection, nondistended, normoactive bowel sounds, non-tender, non-distended and no masses Auscultation: normoactive bowel sounds Palpation: soft Back/Spine Back/Spine Narrative: There is mild pain on palpation to the midline of the upper thoracic vertebrae without bony deformity or step-off Extremity normal to inspection Extremity Narrative: Pelvis is stable there is no shortening or external rotation of either lower extremity. Patient can lift both arms and legs without difficulty Neuro CN's II-XII intact bilaterally Sensorium / Orientation: alert Motor Exam: strength 5/5 throughout Psych Psych Narrative: Patient is at his baseline mental status Skin Skin Narrative: Laceration to the scalp as documented above MDM MDM MDM Narrative Medical decision making narrative: Patient presented to the ER with stable vitals at his baseline mental status. reported a mechanical fall and therefore I felt no need for cardiac or syncope work-up. Based on his advanced age and reported he did fall I did elect to perform CTs of the head and cervical spine as well as an x-ray of his pelvis and back. Imaging studies revealed no acute finding. The patient's scalp laceration was sutured as documented below. Following this as his laceration has been closed and he does not have any signs of underlying injury based on his images he is otherwise safe for discharge Patient had the scalp laceration cleaned with chlorhexidine. It was anesthetized with 7 mL of 2% lidocaine with epinephrine in local fashion. The wound was copiously irrigated with normal saline. Then ten 4-0 Ethilon sutures were placed in simple interrupted fashion. This brought the wound together with good approximation. Patient tolerated procedure well without complication. Radiography Diagnostic Testing: Clinical Impression(s) from Imaging Studies Brain CT 12/27/21 00:58 IMPRESSION: undefined Cervical Spine CT 12/27/21 00:58 IMPRESSION: 1. No acute fracture or subluxation. 2. Nonspecific straightening of the normal cervical lordosis. 3. Multilevel degenerative changes. Electronically Signed: Roddy Mcclure MD at 2:32 EDT , Thoracic Spine X-Ray 12/27/21 00:58 IMPRESSION: No acute fracture or subluxation. Electronically Signed: Roddy Mcclure MD at 2:23 EDT , X-ray of the thoracic spine as interpreted by the emergency medicine physician reveals no acute fracture or subluxation X-ray of the pelvis as interpreted by the emergency medicine physician reveals hardware to be intact and in place without acute fracture or dislocation Discharge Plan Triage Chief Complaint: Fall ED Provider: Davin Vila Dx/Rx/DC Orders Clinical Impression: Laceration of scalp, Accidental fall, Alzheimer's dementia Instructions: ED Head Injury (Adult), ED Laceration: All Closures Prescriptions: No Action tramadol 50 MG tablet 50 mg PO Q4H PRN PRN (Reason: Pain) RF: 0 niacin 50 MG tablet 50 mg PO DAILY RF: 0 diclofenac sodium 75 MG tablet 75 mg PO DAILY RF: 0 lisinopril-hydrochlorothiazide [Zestoretic] 1 TABLET tablet 1 tab PO DAILY RF: 0 loratadine 10 MG tablet 10 mg PO DAILY RF: 0 Ranitidine [Zantac] 150 MG tablet 150 mg PO DAILY RF: 0 Primary Care Provider: Adrián Galeana Referrals: Adrián Galeana MD [Primary Care Provider] - Activity Restrictions/Additional Instructions: Please see your family doctor or return to the ER in 7 to 10 days for suture removal Disposition Disposition: Home, Self Care
[2021-12-27 03:26] VITALS: BP 92/53; PULSE 77; RESP 17; O2SAT 93
== END 2021-12-27 03:28 | disposition home or self-care (01) ==
PROVIDERS: Emergency Provider Emergency Medicine; PCP Family Medicine; Visit Provider Emergency Medicine
DX: S01.01XA Laceration without foreign body of scalp, initial encounter (principal); G30.9 Alzheimer's disease, unspecified; F02.80 Dementia in other diseases classified elsewhere, unspecified severity, without behavioral disturbance, psychotic disturbance, mood disturbance, and anxiety; W07.XXXA Fall from chair, initial encounter; Z23 Encounter for immunization
CPT/HCPCS: 12002; 70450; 72072; 72125; 72170; 90715; 96372; 99282